=== PATIENT | female | born 1955 | race Two or more races ===

== ENCOUNTER 2018-04-08 06:46 | Inpatient (IN) | payer OTHER ==
[~2018-04-08] VITALS: Ht 160 cm; Wt 93.2 kg
[2018-04-08 07:22] LABS: Basophils # (auto) 0.1 uL; Eosinophils # (auto) 0.3 uL; Eosinophils % (auto) 3.1 % (0.0-7.0); Hematocrit 39.9 % (36.0-46.0); Hemoglobin 13.6 g/dL (12.2-16.2); Lymphocytes # (auto) 1.6 uL; Mean Corpuscular Volume 94.2 fL (80.0-100.0); Monocytes # (auto) 0.8 uL; Monocytes % (auto) 8.7 % (0.0-12.0); Neutrophils # (auto) 5.9 uL; Neutrophils % (auto) 68.2 % (37.0-80.0); Nucleated Red Blood Cells % 0.1 %; Platelet Count (auto) 197 10^3/uL (140-450); Red Blood Cells 4.24 10^6/uL (4.0-5.20); Red Cell Distribution Width 12.6 % (11.8-14.3); White Blood Cell 8.7 10^3/uL (4.4-10.8)
[2018-04-08 07:33] LABS: INR 0.92 (0.9-1.15); Partial Thromboplastin Time 25.8 sec (22.64-33.71)
[2018-04-08 08:17] LABS: Alanine Aminotransferase 40 U/L (13-56); Albumin 3.9 g/dL (3.4-5.0); Alkaline Phosphatase 84 U/L (45-117); Anion Gap 8 (5-15); Aspartate Aminotransferase 23 U/L (15-37); BUN/Creatinine Ratio 23.9; Bilirubin, Total 0.6 mg/dL (0.2-1.0); Blood Urea Nitrogen 27 mg/dL (7-18); Calcium 9.3 mg/dL (8.5-10.1); Carbon Dioxide 25 mmol/L (21-32); Chloride 104 mmol/L (98-107); GFR African American 62 mL/min; GFR Non-African American 52 mL/min; Glucose 175 mg/dL (74-106); Magnesium 2.3 mg/dL (1.6-2.6); Potassium 4.4 mmol/L (3.5-5.1); Sodium 137 mmol/L (136-145); Total Protein 8.5 g/dL (6.4-8.2)
[2018-04-08 08:59] LABS: Urine Bacteria FEW /hpf (None Seen); Urine Blood Negative /uL (Negative); Urine Specific Gravity 1.008 (1.001-1.035); Urine WBC 14 /hpf (0 - 5)
[2018-04-08] MEDS ORDERED: NITROGLYCERIN 0.4 MG SL TAB SL ONE (09:00)
[2018-04-08] MEDS ORDERED: ASPirin 81 mg TAB PO ONE ×2 (09:00→10:45)
[2018-04-08] MEDS ORDERED: NITROGLYCERIN 0.4 MG SL TAB SL PRN (10:45)
[2018-04-08] MEDS ORDERED: PROMETHAZINE HCL 25 MG/ML 1ML IV PRN (10:45)
[2018-04-08] MEDS ORDERED: LORazepam 0.5 MG TAB PO PRN (10:45)
[2018-04-08] MEDS ORDERED: MORPHINE SULFATE 4 MG/ML SYR/VIAL IV PRN ×2 (10:45)
[2018-04-08] MEDS ORDERED: PANTOPRAZOLE 40 MG TAB PO ONE (10:45)
[2018-04-08] MEDS ORDERED: HYDROcodone-ACET 5/325MG TAB PO PRN (10:45)
[2018-04-08] MEDS ORDERED: DEXTROSE (50%) 50ML SYRG IV PRN (10:45)
[2018-04-08] MEDS ORDERED: ENOXAPARIN SOD 40 MG/0.4 ML SYRINGE SC ONE (10:45)
[2018-04-08] MEDS ORDERED: NITROGLYCERIN 0.2MG/HR TOPICAL PATCH TD ONE (10:45)
[2018-04-08] MEDS ORDERED: METOPROLOL TARTRATE 25 MG TAB PO ONE (10:45)
[2018-04-08] MEDS: ACCU-CHEK COMFORT CURVE STRIP VI SCH ×3 (11:20→22:10)
[2018-04-08] MEDS: InsuLIN REG 1unit/0.01ml Soln (100units/ml) SC SCH ×3 (11:57→22:10)
[2018-04-08] MEDS: SODIUM CHLORIDE 0.9% 1,000 ML IV SCH (11:58)
[2018-04-08] MEDS ORDERED: IOHEXOL 350 MG/ML 100ML IJ ONE (13:27)
[2018-04-08] MEDS ORDERED: GABA300C10 PO (15:50)
[2018-04-08] MEDS ORDERED: ASPI325T4 PO (15:50)
[2018-04-08] MEDS ORDERED: OME20T PO (15:50)
[2018-04-08] MEDS ORDERED: OMEG1CAP59 PO (15:50)
[2018-04-08] MEDS ORDERED: METF-370 PO (15:50)
[2018-04-08] MEDS ORDERED: LORA-654 PO (15:50)
[2018-04-08] MEDS ORDERED: TRAM50TA2 PO (15:50)
[2018-04-08] MEDS ORDERED: AMLO5TAB2 PO (15:50)
[2018-04-08] MEDS ORDERED: HYDR25TA4 PO (15:50)
[2018-04-08] MEDS ORDERED: CINN500C7 PO (15:50)
[2018-04-08] MEDS ORDERED: INS7030I SC ×2 (15:50)
[2018-04-08] MEDS ORDERED: LISI-646 PO (15:50)
[2018-04-08] MEDS ORDERED: CYAN1TAB18 PO (15:50)
[2018-04-08] MEDS ORDERED: ATEN-60 PO (15:50)
[2018-04-08 17:36] VITALS: BP 114/55
[2018-04-08 20:00] VITALS: BP 128/59
[2018-04-08 21:56] VITALS: BP 128/59
[2018-04-08] MEDS ORDERED: ATORVASTATIN 20 MG TAB PO SCH (22:00)
[2018-04-08] MEDS: METOPROLOL TARTRATE 25 MG TAB PO SCH (22:09)
[2018-04-08] MEDS: ACETAMINOPHEN 500 MG TAB PO PRN (22:10)
[2018-04-09] MEDS: SODIUM CHLORIDE 0.9% 1,000 ML IV SCH ×2 (00:10→12:29)
[2018-04-09 05:26] VITALS: BP 118/64
[2018-04-09] MEDS: InsuLIN REG 1unit/0.01ml Soln (100units/ml) SC SCH ×4 (06:13→22:08)
[2018-04-09] MEDS: ACCU-CHEK COMFORT CURVE STRIP VI SCH ×4 (06:14→22:09)
[2018-04-09 07:08] LABS: Cholesterol 181 mg/dL (< 200); HDL Cholesterol 38 mg/dL (40-59); LDL Cholesterol 122 mg/dL (< 100); Triglycerides 210 mg/dL (< 150)
[2018-04-09 07:58] VITALS: BP 126/50
[2018-04-09] MEDS: ENOXAPARIN SOD 40 MG/0.4 ML SYRINGE SC SCH (09:29)
[2018-04-09] MEDS: PANTOPRAZOLE 40 MG TAB PO SCH (09:30)
[2018-04-09] MEDS: ASPirin 81 mg TAB PO SCH (09:30)
[2018-04-09] MEDS: ACETAMINOPHEN 500 MG TAB PO PRN (09:30)
[2018-04-09] MEDS: METOPROLOL TARTRATE 25 MG TAB PO SCH ×2 (09:33→22:07)
[2018-04-09] MEDS ORDERED: NITROGLYCERIN 0.2MG/HR TOPICAL PATCH TD SCH (10:00)
[2018-04-09 12:48] VITALS: BP 152/70
[2018-04-09 16:55] VITALS: BP 142/73
[2018-04-09 22:00] VITALS: BP 168/78
[2018-04-09] MEDS: TEMAZEPAM 15 MG CAP PO PRN (22:08)
[2018-04-09] MEDS: ATORVASTATIN 20 MG TAB PO SCH (22:08)
[2018-04-10 05:00] VITALS: BP 127/62
[2018-04-10] MEDS: InsuLIN REG 1unit/0.01ml Soln (100units/ml) SC SCH ×4 (05:48→21:56)
[2018-04-10] MEDS: ACCU-CHEK COMFORT CURVE STRIP VI SCH ×4 (05:52→21:56)
[2018-04-10 09:00] VITALS: BP 144/79
[2018-04-10] MEDS: PANTOPRAZOLE 40 MG TAB PO SCH (09:33)
[2018-04-10] MEDS: ENOXAPARIN SOD 40 MG/0.4 ML SYRINGE SC SCH (09:34)
[2018-04-10] MEDS: ASPirin 81 mg TAB PO SCH (09:34)
[2018-04-10] MEDS: METOPROLOL TARTRATE 25 MG TAB PO SCH ×2 (09:37→21:42)
[2018-04-10] MEDS: LISINOPRIL 10 MG TAB PO SCH (12:01)
[2018-04-10 12:36] VITALS: BP 162/76
[2018-04-10 16:36] VITALS: BP 153/63
[2018-04-10] MEDS: ATORVASTATIN 20 MG TAB PO SCH (21:41)
[2018-04-10] MEDS: TEMAZEPAM 15 MG CAP PO PRN (21:42)
[2018-04-10 22:00] VITALS: BP 137/84
[2018-04-10 22:30] LABS: Alcohol, Urine < 3.0 mg/dL (0-5); Amphetamine Screen, Urine NEGATIVE (NEGATIVE); Barbiturate Scree,Urine NEGATIVE (NEGATIVE); Benzodiazephine Screen, Urine NEGATIVE (NEGATIVE); Cannabinoid Screen, Urine NEGATIVE (NEGATIVE); Cocaine Screen, Urine NEGATIVE (NEGATIVE); Opiate Scree,Urine NEGATIVE (NEGATIVE); Phencyclidine Screen, Urine NEGATIVE (NEGATIVE)
[2018-04-10 22:42] LABS: Urine Bacteria MANY /hpf (None Seen); Urine Blood 2+ /uL (Negative); Urine Mucus FEW (None Seen); Urine Specific Gravity 1.003 (1.001-1.035); Urine WBC 139 /hpf (0 - 5); Urine WBC Clumps PRESENT /hpf (None Seen)
[2018-04-11 04:35] VITALS: BP 144/77
[2018-04-11] MEDS: ACCU-CHEK COMFORT CURVE STRIP VI SCH ×3 (06:42→17:12)
[2018-04-11] MEDS: InsuLIN REG 1unit/0.01ml Soln (100units/ml) SC SCH ×3 (06:42→17:13)
[2018-04-11 09:00] VITALS: BP 170/81
[2018-04-11 10:11] VITALS: BP 160/74
[2018-04-11] MEDS ORDERED: ADENOSINE 78 MG in GIVE UN-DILUTED 0 ML IV ONE (10:15)
[2018-04-11] MEDS: ENOXAPARIN SOD 40 MG/0.4 ML SYRINGE SC SCH (12:18)
[2018-04-11] MEDS: PANTOPRAZOLE 40 MG TAB PO SCH (12:19)
[2018-04-11] MEDS: ASPirin 81 mg TAB PO SCH (12:19)
[2018-04-11] MEDS: LISINOPRIL 10 MG TAB PO SCH (12:29)
[2018-04-11] MEDS: METOPROLOL TARTRATE 25 MG TAB PO SCH ×2 (12:30→18:24)
[2018-04-11 13:00] VITALS: BP 151/70
[2018-04-11] MEDS ORDERED: ATOR20TA50 PO (16:21)
[2018-04-11] MEDS ORDERED: PANT40TA2 PO (16:21)
[2018-04-11] MEDS ORDERED: CIPR-173 PO (16:21)
[2018-04-11 17:00] VITALS: BP 162/80
[2018-04-11 17:32] VITALS: BP 148/73
== END 2018-04-11 19:20 | disposition home or self-care (01) | DRG 690 ==
LOC: ER 06:46 → TELE 06:47 → TELE-WESTW 16:01
PROVIDERS: ADMIT Internal Medicine; ATTEND Hospitalist
DX: N39.0 Urinary tract infection, site not specified (principal); E11.42 Type 2 diabetes mellitus with diabetic polyneuropathy; I11.9 Hypertensive heart disease without heart failure; R07.89 Other chest pain; I25.10 Atherosclerotic heart disease of native coronary artery without angina pectoris; E11.65 Type 2 diabetes mellitus with hyperglycemia; E66.01 Morbid (severe) obesity due to excess calories; F41.9 Anxiety disorder, unspecified; E78.00 Pure hypercholesterolemia, unspecified; K21.9 Gastro-esophageal reflux disease without esophagitis; Z68.36 Body mass index [BMI] 36.0-36.9, adult; Z82.3 Family history of stroke; Z82.49 Family history of ischemic heart disease and other diseases of the circulatory system; Z83.3 Family history of diabetes mellitus; Z79.899 Other long term (current) drug therapy; Z79.4 Long term (current) use of insulin
CPT/HCPCS: 36415; 71046; 71275; 80053; 80061; 80307; 81001; 82550; 82962; 83036; 83735; 83880; 84443; 84484; 85025; 85379; 85610; 85652; 85730; 86141; 93005; 93017; 93306; 93926; 96372; J0153; J1815

== ENCOUNTER 2018-09-04 12:54 | Emergency (ER) | payer OTHER ==
[~2018-09-04] VITALS: Ht 165.1 cm; Wt 68.0 kg
[~2018-09-04 12:54] MED LIST: AMLO5TAB13 PO; ASPI325T4 PO; ATEN-60 PO; ATOR20TA50 PO; CIPR-173 PO; CYAN1TAB18 PO; GABA300C10 PO; HYDR25TA4 PO; INS7030I SC; LISI-646 PO; LORA-654 PO; METF-370 PO; OME20T PO; OMEG1CAP59 PO; PANT40TA2 PO; TRAM50TA2 PO
[2018-09-04 13:11] VITALS: BP 175/91
[2018-09-04] MEDS ORDERED: KETOROLAC TROMETH 60MG/2ML VIAL IM ONE (13:30)
== END 2018-09-04 14:28 | disposition home or self-care (01) ==
LOC: ER 12:54
DX: M25.562 Pain in left knee (principal); I10 Essential (primary) hypertension; E11.9 Type 2 diabetes mellitus without complications; E78.5 Hyperlipidemia, unspecified; J45.909 Unspecified asthma, uncomplicated; Z79.4 Long term (current) use of insulin; Z79.899 Other long term (current) drug therapy
CPT/HCPCS: 73562; 96372; 99284; J1885

== ENCOUNTER 2019-12-23 22:32 | Emergency (ER) | payer OTHER ==
[~2019-12-23] VITALS: Ht 160 cm; Wt 90.7 kg
[~2019-12-23 22:32] MED LIST changes: -AMLO5TAB13 PO; +AMLO5TAB15 PO; -LORA-654 PO; +LORA0.5T12 PO
[2019-12-24 01:02] VITALS: BP 154/67
[2019-12-24] MEDS ORDERED: BACLOFEN 10 MG TAB PO ONE (01:15)
[2019-12-24] MEDS ORDERED: ACETAMINOPHEN/CODEINE#3 (300/30mg) TAB PO ONE (01:15)
[2019-12-24] MEDS ORDERED: DexAMETHasone SOD PHOS 10MG/1ML VIAL INJ IM ONE (01:15)
== END 2019-12-24 02:42 | disposition home or self-care (01) ==
LOC: ER 22:32
DX: S16.1XXA Strain of muscle, fascia and tendon at neck level, initial encounter (principal); E11.9 Type 2 diabetes mellitus without complications; I10 Essential (primary) hypertension; J45.909 Unspecified asthma, uncomplicated; E78.5 Hyperlipidemia, unspecified; Z79.4 Long term (current) use of insulin; W01.0XXA Fall on same level from slipping, tripping and stumbling without subsequent striking against object, initial encounter; Y93.89 Activity, other specified; Y99.8 Other external cause status; Y92.89 Other specified places as the place of occurrence of the external cause
CPT/HCPCS: 72040; 96372; 99283; J1100

== ENCOUNTER 2022-04-23 11:11 | Emergency (ER) | payer OTHER ==
[~2022-04-23] VITALS: Ht 160 cm; Wt 91.6 kg
[2022-04-23 11:11] VITALS: BP 170/73
[~2022-04-23 11:11] MED LIST changes: +AMLO-489 PO; -AMLO5TAB15 PO; -LISI-646 PO; +LISI20TA28 PO; -LORA0.5T12 PO; +LORA0.5T20 PO
[2022-04-23 13:22] LABS: Albumin 3.9 g/dL (3.4-5.0); BUN/Creatinine Ratio 18.9; Calcium 9.1 mg/dL (8.5-10.1); Potassium 4.7 mmol/L (3.5-5.1)
[2022-04-23 13:25] LABS: Bilirubin, Total 1.1 mg/dL (0.2-1.0); Total Protein 8.2 g/dL (6.4-8.2)
[2022-04-23 13:41] LABS: Basophils # (auto) 0 10 ^3/uL (0-0.2); Basophils % (auto) 0.4 % (0.0-2.0); Eosinophils # (auto) 0.1 10 ^3/uL (0-0.8); Eosinophils % (auto) 0.6 % (0.0-7.0); Hematocrit 34.8 % (36.0-46.0); Hemoglobin 12.2 g/dL (12.2-16.2); Lymphocytes # (auto) 0.8 10 ^3/uL (0.4-5.4); Lymphocytes % (auto) 10.3 % (10.0-50.0); Mean Corpuscular Hemoglobin 31.6 pg (28.0-32.0); Mean Corpuscular Volume 90.4 fL (80.0-100.0); Monocytes # (auto) 0.6 10 ^3/uL (0-1.3); Monocytes % (auto) 7.3 % (0.0-12.0); Neutrophils # (auto) 6.6 10 ^3/uL (1.6-8.6); Neutrophils % (auto) 81.4 % (37.0-80.0); Red Blood Cells 3.85 10^6/uL (4.0-5.20); Red Cell Distribution Width 13.6 % (11.8-14.3); White Blood Cell 8.1 10^3/uL (4.4-10.8)
[2022-04-23] MEDS ORDERED: ASPirin 81 mg TAB PO ONE (17:45)
== END 2022-04-23 21:01 | disposition left against medical advice (07) ==
LOC: ER 11:11
DX: G45.9 Transient cerebral ischemic attack, unspecified (principal); E87.1 Hypo-osmolality and hyponatremia; I10 Essential (primary) hypertension; I25.10 Atherosclerotic heart disease of native coronary artery without angina pectoris; E11.9 Type 2 diabetes mellitus without complications; E78.5 Hyperlipidemia, unspecified; J45.909 Unspecified asthma, uncomplicated
CPT/HCPCS: 36415; 70450; 71045; 80053; 84484; 85025; 93005

== ENCOUNTER 2023-12-23 07:38 | Emergency (ER) | payer OTHER, MEDICAID ==
[~2023-12-23] VITALS: Ht 160 cm; Wt 90.9 kg
[~2023-12-23 07:38] MED LIST changes: -AMLO-489 PO; +AMLO1TAB22 PO; -CYAN1TAB18 PO; +CYAN1TAB19 PO; +GABA-1250 PO; -GABA300C10 PO; -LISI20TA28 PO; +LISI20TA56 PO; +LORA-1121 PO; -LORA0.5T20 PO
[2023-12-23] MEDS ORDERED: ASPirin 81 mg TAB PO ONE (08:00)
[2023-12-23] MEDS ORDERED: ONDANSETRON HCL 4 MG/2 ML VIAL IV ONE (08:00)
[2023-12-23 08:01] LABS: Basophils # (auto) 0.1 10 ^3/uL (0-0.2); Basophils % (auto) 0.6 % (0.0-2.0); Eosinophils # (auto) 0 10 ^3/uL (0-0.8); Eosinophils % (auto) 0.4 % (0.0-7.0); Hemoglobin 14.2 g/dL (12.2-16.2); Lymphocytes # (auto) 1.3 10 ^3/uL (0.4-5.4); Lymphocytes % (auto) 11.7 % (10.0-50.0); Mean Corpuscular Hemoglobin 32.9 pg (28.0-32.0); Mean Corpuscular Hgb Conc. 34.5 g/dL (32.0-36.0); Mean Corpuscular Volume 95.3 fL (80.0-100.0); Monocytes # (auto) 0.8 10 ^3/uL (0-1.3); Monocytes % (auto) 6.9 % (0.0-12.0); Neutrophils # (auto) 9.1 10 ^3/uL (1.6-8.6); Neutrophils % (auto) 80.4 % (37.0-80.0); Nucleated Red Blood Cells % 0.1 %; Red Blood Cells 4.31 10^6/uL (4.0-5.20); Red Cell Distribution Width 12.2 % (11.8-14.3); White Blood Cell 11.3 10^3/uL (4.4-10.8)
[2023-12-23 08:09] LABS: Urine Bacteria FEW /hpf (None Seen); Urine Blood Negative /uL (Negative); Urine Clarity Clear (Clear); Urine Color Yellow (Yellow); Urine Epithelial Cast None Seen /hpf (<5); Urine Protein, UAD Negative (Negative); Urine Specific Gravity 1.011 (1.001-1.035); Urine Urobilinogen Normal (Negative); Urine WBC 31 /hpf (0 - 5); Urine pH 6.5 (5.0-8.0)
[2023-12-23 08:18] LABS: INR 0.98 (0.9-1.15); Partial Thromboplastin Time 28.1 SEC (24.5-34.5); Prothrombin Time 10.3 sec (9.3-11.8)
[2023-12-23 08:42] LABS: Alanine Aminotransferase 29 U/L (7-40); Albumin 4.8 g/dL (3.2-4.8); Alkaline Phosphatase 129 U/L (46-116); Anion Gap 8 (5-15); Aspartate Aminotransferase 26 U/L (13-40); Bilirubin, Total 1.2 mg/dL (0.2-1.0); Blood Urea Nitrogen 24 mg/dL (9-23); Calcium 9.8 mg/dL (8.5-10.1); Carbon Dioxide 26 mmol/L (20-30); Chloride 101 mmol/L (98-107); Glucose 142 mg/dL (74-106); Potassium 4.6 mmol/L (3.5-5.1); Sodium 135 mmol/L (136-145); Total Protein 8.2 g/dL (5.7-8.2)
[2023-12-23] MEDS ORDERED: CIPR-173 PO (09:32)
[2023-12-23 10:11] LABS: Magnesium 1.8 mg/dL (1.6-2.6)
[2023-12-23 11:01] VITALS: BP 142/86; PULSE 71; RESP 17; TEMP 97.8; O2SAT 98
== END 2023-12-23 11:04 | disposition home or self-care (01) ==
LOC: ER 07:38
DX: R07.89 Other chest pain (principal); N39.0 Urinary tract infection, site not specified; J45.909 Unspecified asthma, uncomplicated; E11.22 Type 2 diabetes mellitus with diabetic chronic kidney disease; I12.9 Hypertensive chronic kidney disease with stage 1 through stage 4 chronic kidney disease, or unspecified chronic kidney disease; N18.9 Chronic kidney disease, unspecified; E78.5 Hyperlipidemia, unspecified; D72.829 Elevated white blood cell count, unspecified
CPT/HCPCS: 36415; 71045; 80053; 81001; 83735; 83880; 84484; 85025; 85379; 85610; 85730; 93005; 96374; 99285; J2405